=== PATIENT | female | born 1960 | race Caucasian/White ===

== ENCOUNTER 2016-09-26 08:23 | Outpatient (CLI) | payer BC ==
--- NOTE | 2016-09-29 16:23 | Mammography Report ---
DIGITAL SCREENING MAMMOGRAM: 09/26/2016 CLINICAL INDICATION: A 56-year-old, for screening. COMPARISON: 07/2013, 01/2009. TECHNIQUE: Routine CC and MLO projections were obtained of the breasts. FINDINGS: The breasts again demonstrate heterogeneously dense fibroglandular parenchyma bilaterally. In the right outer central breast, there is a possible obscured nodule. Further evaluation with spot compression views and possible ultrasound is recommended. No mammographically suspicious findings ar e appreciated in the left breast. IMPRESSION: INCOMPLETE EXAMINATION. RECOMMENDATION: ADDITIONAL EVALUATION OF THE RIGHT BREAST ABOVE. BIRADS CATEGORY 0-INCOMPLETE. STANDARD QUALIFYING STATEMENTS 1. This examination was reviewed with the aid of Computer-Aided Detection (CAD). 2. A negative or benign imaging report should not delay biopsy if clinically suspicious findings are present. Consider surgical consultation if warranted. More than 5% of cancers are not identified by i maging. 3. Dense breasts may obscure an underlying neoplasm. JOB #: [id number] EXT JOB #:[id number]
== END 2016-09-26 08:24 | disposition home or self-care (01) ==
LOC: DI 08:23
PROVIDERS: ATTEND Physician Assistant
DX: Z12.31 Encounter for screening mammogram for malignant neoplasm of breast (principal); R92.8 Other abnormal and inconclusive findings on diagnostic imaging of breast
CPT/HCPCS: 77067

== ENCOUNTER 2016-09-26 08:27 | Outpatient (CLI) | payer BC ==
--- NOTE | 2016-09-26 13:31 | DEXA Report ---
DEXA BONE MINERAL DENSITY SCAN: 09/26/2016 CLINICAL HISTORY: A 56-year-old postmenopausal female. TECHNIQUE: Dual energy x-ray absorptiometry (DXA) was performed on a [employer] system. Regions measured are the AP spine, femoral neck, and, if needed, forearm. COMPARISON: None. In accordance with the International Society for Clinical Densitometry (ISCD) guidelines, data from previous exams may be reanalyzed using current recommendations and techniques. This is done to allow a more accurate basis for comparison with the current study. FINDINGS: The data for the lumbar spine is as follows: REGION BMD (g/cm/cm) T-SCORE Z-SCORE L1 1.177 0.4 0.9 L2 1.247 0.4 0.9 L3 1.359 1.3 1.9 L4 1.325 1.0 1.6 TOTAL 1.284 0.9 1.4 NOTE: All evaluable vertebrae are used for classification. The data for the hip is as follows: REGION BMD (g/cm/cm) T-SCORE Z-SCORE Neck 0.996 -0.3 0.5 TOTAL 0.989 -0.1 0.3 NOTE: The femoral neck or total proximal femur, whichever is lowest, is used for classification. IMPRESSION: L1 THROUGH L4 T-SCORE IS 0.9. THIS IS WITHIN NORMAL LIMITS ACCORDING TO THE WORLD HEALTH ORGANIZATION GUIDELINES. THE FEMORAL NECK T-SCORE IS -0.3. THIS IS WITHIN NORMAL LIMITS ACCORDING TO THE WORLD HEALTH ORGANIZATION GUIDELINES. TOTAL HIP T-SCORE IS -0.1. THIS IS WITHIN NORMAL LIMITS ACCORDING TO THE WORLD HEALTH ORGANIZATION GUIDELINES. THE WHO CLASSIFICATION BASED ON THE INTERNATIONAL REFERENCE STANDARD IS NORMAL. THE PATIENT HAS NO INCREASED FRACTURE RISK. RECOMMENDATION: Patients with diagnosis of osteoporosis or osteopenia should have regular bone mineral density assessment. For those eligible for Medicare, routine testing is allowed once every 2 years. Testing frequency can be increased for patients who have rapidly progressing disease or for those who are receiving medical therapy to restore bone mass. COMMENT: World Health Organization (WHO) definitions for osteoporosis and osteopenia: NORMAL BMD: T-score at -1.0 or higher, fracture risk is low. OSTEOPENIA BMD: T-score between -1.0 and -2.5, fracture risk is increased. OSTEOPOROSIS BMD: T-score at -2.5 or lower, fracture risk high. National Osteoporosis Foundation recommends: 1. Obtain adequate dietary calcium (at least 1200 mg per day) and vitamin D (400 -800 international units per day). 2. Participate, as appropriate, in regular weightbearing and muscle- strengthening exercise. 3. Avoid tobacco use and reduce alcohol and caffeine intake. 4. For more detailed information see the website at www.NOF.org. MTDD
== END 2016-09-26 08:28 | disposition home or self-care (01) ==
LOC: DI 08:27
PROVIDERS: ATTEND Physician Assistant
DX: Z78.0 Asymptomatic menopausal state (principal)
CPT/HCPCS: 77080

== ENCOUNTER 2016-10-17 08:14 | Outpatient (CLI) | payer BC ==
--- NOTE | 2016-10-17 12:35 | Ultrasound Report ---
RIGHT BREAST ULTRASOUND: 10/17/2016 CLINICAL INDICATION: Persistent nodule on mammogram. TECHNIQUE: Real-time scanning was performed with patient care representative static images obtained. FINDINGS: Ultrasound of the right outer breast was performed. At the 9 o'clock position, approximat gregorio 3 cm from the nipple, there is a 1.6 x 1.3 x 0.9 cm simple cyst, accounting for the mammographic abnormality. No sonographically suspicious findings are identified. IMPRESSION: SIMPLE CYST, ACCOUNTING FOR THE MAMMOGRAPHIC ABNORMALITY. RECOMMENDATION: Routine annual screening unless otherwise clinically indicated. BIRADS CATEGORY 2 - BENIGN FINDINGS. JOB #: [id number] EXT JOB #:[id number]
--- NOTE | 2016-10-17 20:00 | Mammography Report ---
DIGITAL DIAGNOSTIC RIGHT MAMMOGRAM: 10/17/2016 CLINICAL INDICATION: Possible nodule on screening. TECHNIQUE: Right true lateral and spot compression views. COMPARISON: 09/26/2016, 07/29/2013, 02/02/2009 FINDINGS: The right breast again demonstrates heterogeneously dense fibroglandular parenchyma. A ci rcumscribed nodule persists at the 3 o'clock position of the right breast, measuring 1.8 cm. Please also refer to right breast ultrasound of the same day. No associated calcifications are seen. IMPRESSION: BENIGN FINDINGS, WITH A SIMPLE CYST ON ULTRASOUND ACCOUNTING FOR THE MAMMOGRAPHIC ABNORM ALITY. RECOMMENDATION: Routine annual screening unless otherwise clinically indicated. BIRADS CATEGORY 2 - BENIGN FINDINGS. STANDARD QUALIFYING STATEMENTS 1. This examination was reviewed with the aid of Computer-Aided Detection (CAD). 2. A negative or benign imaging report should not delay biopsy if clinically suspicious findings are present. Consider surgical consultation if warranted. More than 5% of cancers are not identified by i maging. 3. Dense breasts may obscure an underlying neoplasm. JOB #: [id number] EXT JOB #:[id number]
== END 2016-10-17 08:15 | disposition home or self-care (01) ==
LOC: DI 08:14
PROVIDERS: ATTEND Physician Assistant
DX: N60.01 Solitary cyst of right breast (principal)
CPT/HCPCS: 76642

== ENCOUNTER 2016-11-04 06:27 | Day surgery (SDC) | payer BC ==
[2016-11-04] MEDS ORDERED: LACTATED RINGERS 1,000 ML IV ONE ×2 (07:00→08:30)
[2016-11-04] MEDS ORDERED: fentaNYL 100 MCG/2 ML VIAL IVP ONE (07:41)
[2016-11-04] MEDS ORDERED: MIDAZOLAM 2 MG/2 ML VIAL IVP ONE (07:41)
[2016-11-04 08:25] VITALS: BP 124/58
== END 2016-11-04 06:28 | disposition home or self-care (01) ==
LOC: SDS 06:27
PROVIDERS: ATTEND Surgery
PROC: 0DBN8ZX Excision of Sigmoid Colon, Via Natural or Artificial Opening Endoscopic, Diagnostic (ICD-10-PCS; 2016-11-04)
PROC: 0DBM8ZX Excision of Descending Colon, Via Natural or Artificial Opening Endoscopic, Diagnostic (ICD-10-PCS; 2016-11-04)
PROC: 0DBK8ZX Excision of Ascending Colon, Via Natural or Artificial Opening Endoscopic, Diagnostic (ICD-10-PCS; principal; 2016-11-04 07:30)
DX: Z12.11 Encounter for screening for malignant neoplasm of colon (principal); D12.4 Benign neoplasm of descending colon; D12.2 Benign neoplasm of ascending colon; D12.5 Benign neoplasm of sigmoid colon; I10 Essential (primary) hypertension; F32.9 Major depressive disorder, single episode, unspecified
CPT/HCPCS: 45384; J7120

== ENCOUNTER 2017-01-20 14:31 | Outpatient (CLI) | payer BC | END 2017-01-20 14:32 | disposition home or self-care (01) | LOC: LAB.F 14:31 | PROVIDERS: ATTEND Orthopaedic Surgery | DX: Z79.01 Long term (current) use of anticoagulants (principal) | CPT/HCPCS: 36415; 85610 ==

== ENCOUNTER 2017-01-23 13:05 | Outpatient (CLI) | payer BC ==
[2017-01-23 17:54] LABS: PT - PROTHROMBIN TIME 45.7 secs (9.9-12.6)
== END 2017-01-23 13:06 | disposition home or self-care (01) ==
LOC: LAB.F 13:05
PROVIDERS: ATTEND Orthopaedic Surgery
DX: Z79.01 Long term (current) use of anticoagulants (principal)
CPT/HCPCS: 85610

== ENCOUNTER 2017-10-02 07:07 | Outpatient (CLI) | payer OTHER ==
[2017-10-03 10:07] LABS: ESTRADIOL 16 pg/mL
[2017-10-03 10:57] LABS: PROGESTERONE <0.5 ng/mL
== END 2017-10-02 07:08 | disposition home or self-care (01) ==
LOC: LAB.F 07:07
PROVIDERS: ATTEND Naturopath
DX: Z79.890 Hormone replacement therapy (principal)
CPT/HCPCS: 36415; 82670; 82672; 84144; 84403

== ENCOUNTER 2018-03-04 04:30 | Day surgery (SDC) | payer OTHER ==
[2018-03-04] MEDS ORDERED: HYDROmorphone 1 MG/ML CARPUJECT IVP STA ×4 (04:54→13:44)
[2018-03-04] MEDS ORDERED: SODIUM CHLORIDE 0.9% 1,000 ML IV ONE ×2 (04:54→11:57)
[2018-03-04] MEDS ORDERED: ONDANSETRON 4 MG/2 ML VIAL IVP STA ×2 (04:54→12:16)
[2018-03-04 04:56] LABS: BASOPHILS % (AUTO) 0.3 %; EOSINOPHILS % (AUTO) 0.1 %; HGB - HEMOGLOBIN 12.9 g/dL (12.0-16.0); LYMPHOCYTES # (AUTO) 0.9 10^3/uL (1.5-3.5); LYMPHOCYTES % (AUTO) 7.2 %; MEAN CORPUSCULAR HGB CONC 33.9 g/dL (32.0-36.0); MEAN CORPUSCULAR VOLUME 94.5 fL (81.0-99.0); MEAN PLATELET VOLUME 8.5 fL (7.9-10.8); MONOCYTES # (AUTO) 0.6 10^3/uL (0.0-1.0); MONOCYTES % (AUTO) 4.7 %; NEUTROPHILS # (AUTO) 10.8 10^3/uL (1.5-6.6); NEUTROPHILS % (AUTO) 87.7 %; PLT - PLATELET COUNT 208 10^3/uL (130-450); RED BLOOD COUNT 4.03 10^6/uL (4.20-5.40); RED CELL DISTRIBUTION WIDTH 12.2 % (12.0-15.0); WHITE BLOOD COUNT 12.3 x10^3/uL (4.8-10.8)
--- NOTE | 2018-03-04 04:58 | ED Physician Documentation ---
PD HPI ABD PAIN - Stated complaint Stated Complaint: ABD PX - Chief complaint Chief Complaint: Abd Pain - History obtained from History obtained from: Patient, Family - History of Present Illness Timing - onset: Enter time (1700), Yesterday Timing - duration: Hours Timing - details: Gradual onset, Still present Quality: Sharp, Pain Location: RLQ Improved by: Laying still, Vomiting Worsened by: Eating, Moving, Breathing, Position, Palpation Associated symptoms: Nausea, Vomiting, Diarrhea, Loss of appetite Similar symptoms before: Has not had sx before Recently seen: Not recently seen - Additional information Additional information: 57-year-old previously well female had a upper respiratory type infection over the past week and then yesterday afternoon she developed periumbilical abdominal pain which is now migrated into the right lower quadrant and is become severe. She has pain with any movement and with palpation. She is moving slowly required help to get out of the car to come into the emergency department. She is had one episode of vomiting she has had some loose stool and she has had fever and chills. Review of Systems Constitutional: reports: Fever, Chills, Myalgias Ears: denies: Ear pain Nose: reports: Rhinorrhea / runny nose, Congestion Throat: denies: Sore throat Cardiac: denies: Chest pain / pressure, Palpitations Respiratory: reports: Cough. denies: Dyspnea GI: reports: Abdominal Pain, Nausea, Vomiting, Diarrhea : denies: Dysuria, Frequency Skin: denies: Rash Musculoskeletal: denies: Neck pain, Back pain, Extremity pain PD PAST MEDICAL HISTORY - Past Medical History Past Medical History: Yes Cardiovascular: Hypertension Respiratory: None Endocrine/Autoimmune: None GI: None HEENT: None Psych: Depression Musculoskeletal: Osteoarthritis Derm: None - Past Surgical History Past Surgical History: Yes Ortho: Hip replacement /CLINICAL SOCIOLOGIST: Tubal ligation HEENT: Tonsil/Adenoidectomy - Present Medications Home Medications: Ambulatory Orders Medication Instructions Recorded Confirmed Citalopram [CeleXA] 10 mg ORAL DAILY 11/04/16 11/04/16 hydroCHLOROthiazide 25 mg ORAL DAILY 11/04/16 11/04/16 [Hydrochlorothiazide] - Allergies Allergies/Adverse Reactions: Allergies Allergy/AdvReac Type Severity Reaction Status Date / Time bacitracin Allergy Rash Verified 03/04/18 04:36 bacitracin zinc * Allergy Rash Verified 03/04/18 04:36 [From Neosporin ([id number])] neomycin sulfate * Allergy Rash Verified 03/04/18 04:36 [From Neosporin ([id number])] nickel Allergy Rash Verified 03/04/18 04:36 polymyxin B Allergy Rash Verified 03/04/18 04:36 [From Neosporin ([id number])] - Social History Does the pt smoke?: No Smoking Status: Never smoker Does the pt drink ETOH?: Yes Does the pt have substance abuse?: No - Immunizations Immunizations are current?: Yes - POLST Patient has POLST: No PD ED PE NORMAL - Vitals Vital signs reviewed: Yes (hypertensive ) - General General: Alert and oriented X 3, Well developed/nourished, Other (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 ) - HEENT HEENT: Atraumatic, PERRL, EOMI - Neck Neck: Supple, no meningeal sign - Cardiac Cardiac: RRR, No murmur - Respiratory Respiratory: No respiratory distress, Clear bilaterally - Abdomen Abdomen: Soft, Other (RLQ tenderness with garding and referred tenderness ) - Back Back: No CVA TTP, No spinal TTP - Derm Derm: Normal color, Warm and dry, No rash - Extremities Extremities: No deformity, No edema - Neuro Neuro: Alert and oriented X 3, gang investigator 2-12 intact, No motor deficit, No sensory deficit, Normal speech Eye Opening: Spontaneous Motor: Obeys Commands Verbal: Oriented GCS Score: 15 - Psych Psych: Normal mood, Normal affect Results - Vitals Vitals: Vital Signs - 24 hr 03/04/18 04:34 Temperature 36.7 C Heart Rate 78 Respiratory 18 Rate Blood Pressure 179/97 H O2 Saturation 100 Oxygen O2 Source Room air - Labs Labs: Laboratory Tests 03/04/18 03/04/18 04:41 04:41 WBC 12.3 H RBC 4.03 L Hgb 12.9 Hct 38.1 MCV 94.5 MCH 32.0 H MCHC 33.9 RDW 12.2 Plt Count 208 MPV 8.5 Neut # (Auto) 10.8 H Lymph # (Auto) 0.9 L [place] # (Auto) 0.6 Eos # (Auto) 0.0 Baso # (Auto) 0.0 Absolute Nucleated RBC 0.00 Nucleated RBC % 0.0 Sodium 136 Potassium 3.0 L Chloride 97 L Carbon Dioxide 31 Anion Gap 8.0 BUN 24 H Creatinine 1.1 H Estimated GFR (MDRD) 51 L Glucose 156 H Calcium 9.5 Total Bilirubin 0.6 AST 24 ALT 19 Alkaline Phosphatase 71 Total Protein 7.8 Albumin 4.5 Globulin 3.3 Albumin/Globulin Ratio 1.4 Lipase 28 - Rads (name of study) CT abd/pel without Radiology: Prelim report reviewed (Impression: 1. Appendicitis measuring up to 11 mm in diameter. 2. No abscess seen. 3. Mild bibasilar atelectasis with trace pleural effusions.), EMP read indepedently, See rad report PD MEDICAL DECISION MAKING - ED course Complexity details: reviewed old records, reviewed results, re-evaluated patient, considered differential, d/w patient, d/w family ED course: 57-year-old female with a 1 day history of abdominal pain migrating to the right lower quadrant appears to have acute appendicitis on examination and on CT scanning of the abdomen and pelvis. She is administered intravenous Dilaudid and Zofran with improvement in her pain. Departure - Departure Disposition: ED Transfer to [facility] Clinical Impression: Appendicitis Qualifiers: Appendicitis type: acute appendicitis Acute appendicitis type: with localized peritonitis Appendicitis gangrene presence: unspecified whether gangrene present Appendicitis perforation presence: without perforation Appendicitis abscess presence: without abscess Qualified Code(s): K35.30 - Acute appendicitis with localized peritonitis, without perforation or gangrene
[2018-03-04 05:12] LABS: ALBUMIN 4.5 g/dL (3.2-5.5); ALBUMIN/GLOBULIN RATIO 1.4 (1.0-2.2); BILIRUBIN,TOTAL 0.6 mg/dL (0.2-1.0); CALCIUM 9.5 mg/dL (8.5-10.3); CREATININE 1.1 mg/dL (0.4-1.0); TOTAL PROTEIN 7.8 g/dL (6.7-8.2)
--- NOTE | 2018-03-04 05:41 | CT Report ---
Reason: RLQ pain Procedure Date: 03/04/2018 Accession Number: [id number] / [id number] Procedure: CT - Abdomen/Pelvis W/O CPT Code: FULL RESULT: EXAM: CT ABDOMEN AND PELVIS EXAM DATE: 03/04/2018 05:26 AM. CLINICAL HISTORY: RLQ pain. COMPARISONS: None. TECHNIQUE: Routine helical CT imaging was performed through the abdomen and pelvis. IV contrast: None. Enteric contrast: No. Reconstructions: Coronal and sagittal. In accordance with CT protocol optimization, one or more of the following dose reduction techniques were utilized for this exam: automated exposure control, adjustment of mA and/or KV based on patient size, or use of iterative reconstructive technique. FINDINGS: Lung Bases: Mild bibasilar atelectasis. Trace pleural effusions. Liver: Normal. No masses. Gallbladder/Bile Ducts: Unremarkable. Spleen: Normal. Pancreas: Normal. Adrenal Glands: Normal. Kidneys: Normal. No masses or hydronephrosis. Peritoneal Cavity/Bowel: No bowel obstruction seen. There may be some colonic diverticula but no diverticulitis is identified. No free air or free fluid. No lymphadenopathy. Dilated mildly inflamed appendix measuring 11 mm. Appendicolith is seen. No periappendiceal abscess. Pelvic Organs: Streak artifact. Visualized pelvic organs are grossly unremarkable. Vasculature: Mild atherosclerosis. No aortic aneurysm. Bones: Left hip prosthesis. Degenerative changes in the spine. Other: None. IMPRESSION: 1. Appendicitis measuring up to 11 mm in diameter. 2. No abscess seen. 3. Mild bibasilar atelectasis with trace pleural effusions. RADIA
[2018-03-04] MEDS ORDERED: PIPERACILLIN/TAZOBACTAM 3.375 GM in SODIUM CHLORIDE 0.9% MINIBAG 100 ML IV STA (05:46)
[2018-03-04] MEDS ORDERED: POTASSIUM CHLOR 10 MEQ/100 ML 10 MEQ/100 ML BAG IV ONE (05:48)
[2018-03-04 08:51] LABS: BILIRUBIN,URINE NEGATIVE (NEGATIVE); CLARITY,URINE CLEAR (CLEAR); GLUCOSE, URINE (UA) NEGATIVE (NEGATIVE); KETONES,URINE (UA) TRACE mg/dL (NEGATIVE); LEUKOCYTE ESTERASE, URINE NEGATIVE (NEGATIVE); NITRITE,URINE NEGATIVE (NEGATIVE); OCCULT BLOOD,URINE TRACE-LYSE (NEGATIVE); PROTEIN,URINE NEGATIVE (NEGATIVE); UROBILINOGEN,URINE 0.2 (NORMAL) E.U./dL (NORMAL)
--- NOTE | 2018-03-04 11:44 | ANESTHESIA ---
Pre-Anesthesia VS, & Labs - Diagnosis Acute appendicitis - Procedure Lap appendectomy Vital Signs: Temp Pulse Resp BP Pulse Ox 37 C 78 18 154/82 H 96 03/04/18 08:14 03/04/18 04:34 03/04/18 08:14 03/04/18 08:14 03/04/18 08:14 Height 5 ft 6 in Weight (kg) 77.111 kg Body Mass Index 27.4 - Is Patient ?: No - Lab Results Current Lab Results: Laboratory Tests 03/04/18 04:41: Sodium 136, Potassium 3.0 L, Chloride 97 L, Carbon Dioxide 31, Anion Gap 8.0, BUN 24 H, Creatinine 1.1 H, Estimated GFR (MDRD) 51 L, Glucose 156 H, Calcium 9.5, Total Bilirubin 0.6, AST 24, ALT 19, Alkaline Phosphatase 71, Total Protein 7.8, Albumin 4.5, Globulin 3.3, Albumin/Globulin Ratio 1.4, Lipase 28 03/04/18 04:41: WBC 12.3 H, RBC 4.03 L, Hgb 12.9, Hct 38.1, MCV 94.5, MCH 32.0 H , MCHC 33.9, RDW 12.2, Plt Count 208, MPV 8.5, Neut # (Auto) 10.8 H, Lymph # (Auto) 0.9 L, [place] # (Auto) 0.6, Eos # (Auto) 0.0, Baso # (Auto) 0.0, Absolute Nucleated RBC 0.00, Nucleated RBC % 0.0 Fish Bones: 03/04/18 04:41 03/04/18 04:41 Home Medications and Allergies Citalopram [CeleXA] 10 mg ORAL DAILY 11/04/16 hydroCHLOROthiazide [Hydrochlorothiazide] 25 mg ORAL DAILY 11/04/16 Allergies/Adverse Reactions: Allergies Allergy/AdvReac Type Severity Reaction Status Date / Time bacitracin Allergy Rash Verified 03/04/18 04:36 bacitracin zinc * Allergy Rash Verified 03/04/18 04:36 [From Neosporin ([id number])] neomycin sulfate * Allergy Rash Verified 03/04/18 04:36 [From Neosporin ([id number]-[id number])] nickel Allergy Rash Verified 03/04/18 04:36 polymyxin B Allergy Rash Verified 03/04/18 04:36 [From Neosporin ([id number])] Anes History & Medical History - Anesthetic History Anesthesia Complications: reports: No previous complications, Slow wake-up Family history of Anesthesia Complications: Denies Family history of Malignant Hyperthermia: Denies - Medical History Cardiovascular: reports: Hypertension Pulmonary: reports: None Gastrointestinal: reports: None Musculoskeletal: reports: Osteoarthritis Endocrine/Autoimmune: reports: None Skin: reports: None Smoking Status: Never smoker - Surgical History Eyes Ears Nose Throat (EENT): Tonsil/Adenoidectomy Gynecologic: Tubal ligation Orthopedic: Hip replacement, Knee replacement Exam General: Alert, Oriented x3, Cooperative Dental: WNL Mouth Openin Fingerbreadth Neck Mobility: Normal Mallampati classification: II Thyromental Distance: 4-6 cm Respiratory: Lungs clear, Normal breath sounds Neurological: Normal speech Mental/Cognitive Status: Alert/Oriented X3, Normal for patient Cognitive Status: Within normal limits Plan Anesthesia Type: General Consent for Procedure(s) Verified and Reviewed: Yes Code Status: Attempt Resuscitation ASA classification: 2-Mild systemic disease Is this case an emergency?: Yes
[2018-03-04] MEDS ORDERED: PIPERACILLIN/TAZOBACTAM 3.375 GM in SODIUM CHLORIDE 0.9% MINIBAG 100 ML IV SCH (12:00)
--- NOTE | 2018-03-04 13:47 | ED Physician Documentation ---
ED Addendum - Addendum Addendum: 03/04/18 13:45 I assumed care of the patient from the overnight ER MD. The patient was to go to surgery for appendicitis. Dr. Keane came to see the patient shortly after 7 AM. However the OR was full through the morning and the patient remained in the ER until mid afternoon when she could go finally to the OR. She was given repeated doses of pain medicine as needed. She got a second dose of piperacillin at a 6-hour interval. She was maintained with IV fluids. She is kept updated on the progress. She did not have any significant worsening of pain and recheck abdomen did not show any general peritoneal signs so no indication of peritonitis. At this point she should be going to the OR soon.
--- NOTE | 2018-03-04 13:57 | CONSULTATION NOTE ---
Referring Provider Name of Referring Provider:: Dr. Nabeel Faria Consult Date: 03/04/18 Chief Complaint - Chief Complaint Chief Complaint: Abdominal pain History of Present Illness - Admitted From Admitted From:: Not admitted - outpatient placement - History Obtained From Records Reviewed: Yes History obtained from: Patient and Exam Limitations: None - History of Present Illness HPI Comment/Other: Dr. Nabeel Faria called and asked to evaluate this very pleasant 57-year-old female for the possibility of acute appendicitis. The patient states that the pain started yesterday at 2 in the afternoon. This was after eating and initially she thought she had food poisoning. The pain got better and at approximately 8:00 in the evening she decided to eat again which she states was a "big mistake." The pain then just got worse with the passage of time and at 3:30 in the morning today she told her that she would need to come into the emergency department. The pain was initially throughout the abdomen and even now she does have hurt but it is more localized in the right lower quadrant. There was some nausea but no vomiting. No constipation. No diarrhea. No melena. No hematochezia. No hematemesis. No weight loss. She has never had these symptoms previously. History - Past Medical History Cardiovascular: reports: Hypertension Respiratory: reports: None Endocrine/Autoimmune: reports: None GI: reports: None HEENT: reports: None Psych: reports: Depression Musculoskeletal: reports: Osteoarthritis Derm: reports: None MRSA Hx?: No - Past Surgical History Ortho: reports: Hip replacement, Knee replacement /FORENSIC PATHOLOGIST: reports: Tubal ligation HEENT: reports: Tonsil/Adenoidectomy - POLST Patient has POLST: No Meds/Allgy - Home Medications Home Medications: Ambulatory Orders Medication Instructions Recorded Confirmed Citalopram [CeleXA] 10 mg ORAL DAILY 11/04/16 11/04/16 hydroCHLOROthiazide 25 mg ORAL DAILY 11/04/16 11/04/16 [Hydrochlorothiazide] - Allergies Allergies/Adverse Reactions: Allergies Allergy/AdvReac Type Severity Reaction Status Date / Time bacitracin Allergy Rash Verified 03/04/18 04:36 bacitracin zinc * Allergy Rash Verified 03/04/18 04:36 [From Neosporin ([id number])] neomycin sulfate * Allergy Rash Verified 03/04/18 04:36 [From Neosporin ([id number])] nickel Allergy Rash Verified 03/04/18 04:36 polymyxin B Allergy Rash Verified 03/04/18 04:36 [From Neosporin ([id number])] Review of Systems - Constitutional Constitutional: denies: Fatigue - Eyes Eyes: denies: Pain - Ears, Nose & Throat Ears, Nose & Throat: denies: Ear pain - Cardiovascular Cariovascular: denies: Irregular heart rate - Respiratory Respiratory: denies: Cough - Gastrointestinal Gastrointestinal: reports: Abdominal pain, Nausea. denies: Constipation, Diarrhea, Change in bowel habits, Rectal bleeding, Black stools, Bloody stools, Vomiting, [place] blood emesis - Genitourinary Genitourinary: denies: Dysuria - Integumentary Integumentary: denies: Rash - Neurological Neurological: denies: General weakness, Focal weakness - Psychiatric Psychiatric: denies: Depression, Anxiety - Hematologic/Lymphatic Hematologic/Lymphatic: denies: Bruising Exam - Vital Signs Reviewed Vital Signs: Yes Vital Signs: Vital Signs x48h Temp Pulse Resp BP Pulse Ox 03/04/18 13:01 36.9 C 75 16 144/92 H 96 03/04/18 08:14 37 C 18 154/82 H 96 - Physical Exam General Appearance: positive: No acute distress Eyes Bilateral: positive: No lid inflammation, Conjunctivae nml, No scleral icterus ENT: positive: Dry mucous membranes Neck: positive: Trachea midline Respiratory: positive: Chest non-tender, No respiratory distress, Breath sounds nml Cardiovascular: positive: Regular rate & rhythm, No murmur, No gallop Abdomen: positive: Nml bowel sounds, Tenderness (Maximal at McBurney's point.), Guarding Skin: positive: Color nml Extremities: positive: Non-tender, Nml appearance. negative: Tom's sign/cords Neurologic/Psychiatric: positive: Oriented x3 Comments/Other: Note the patient was examined in Room 2 [facility] ED in the presence of her . Conclusion/Plan - Diagnosis Diagnosis: Acute appendicitis - Plan Plan: Laparoscopic appendectomy, possible open appendectomy. The indications, procedure, alternatives including no surgery, possible risks including infection (deep or superficial), bleeding requiring transfusion (with all of its risks), and were fully explained to the patient and all questions answered. I also explained the pathophysiology. I explained that following the surgery I did not want her lifting anything over 15 pounds for 6 weeks to allow for optimal healing and to decrease the likelihood that a hernia would occur. All questions were fully answered. Verbal and written consent was obtained. The patient, in preparation for surgery will be nothing by mouth, and receive 3.375 g of Zosyn with induction. I asked her to contact me with any surgical questions and her concerns and she stated that she would. I asked her to let me know if there is any way we can make her stay at [facility] more comfortable and she stated that she would let me know. My partner Dr. Edis Batres has been kind enough to volunteer to do this case that would allow me to stay in clinic. This was discussed with the patient and the patient is in agreement with allowing Dr. Batres to operate. The plan is to do this operation as an outpatient procedure and to discharge her home following the procedure. 45 minutes of [id number] time spent with the patient, the majority of which was spent in discussion, coordination of care, and completion of the requisite paperwork - Lab Results Lab results reviewed: Yes Fish Bones: 03/04/18 04:41 03/04/18 04:41 - Diagnostic Imaging Results Diagnostic Imaging Results: positive: Final report reviewed, Read independently Diagnostic Imaging Results Comments: Consistent with acute appendicitis
[2018-03-04] MEDS ORDERED: PROPOFOL 200 MG/20 ML VIAL IVP ONE (14:00)
[2018-03-04] MEDS ORDERED: LIDOCAINE-MPF 2% 5 ML VIAL IM ONE (14:00)
[2018-03-04] MEDS ORDERED: KETOROLAC 30 MG/ML VIAL IVP ONE (14:00)
[2018-03-04] MEDS ORDERED: GLYCOPYRROLATE 1 MG/5 ML VIAL IVP ONE (14:00)
[2018-03-04] MEDS ORDERED: ePHEDrine 50 MG/ML VIAL IVP ONE (14:00)
[2018-03-04] MEDS ORDERED: SODIUM CHLORIDE 0.9% 10 ML VIAL IV ONE (14:00)
[2018-03-04] MEDS ORDERED: NEOSTIGMINE 1 MG/1 ML 10 ML MDV IVP ONE (14:00)
[2018-03-04] MEDS ORDERED: DEXAMETHASONE 4 MG/ML VIAL IVP ONE (14:00)
[2018-03-04] MEDS ORDERED: MIDAZOLAM 2 MG/2 ML VIAL IVP ONE (14:00)
[2018-03-04] MEDS ORDERED: ONDANSETRON 4 MG/2 ML VIAL IVP ONE (14:00)
[2018-03-04] MEDS ORDERED: fentaNYL 100 MCG/2 ML VIAL IVP ONE (14:00)
[2018-03-04] MEDS ORDERED: BUPIVACAINE 0.25%-EPI 1:200000 PF 30 ML VIAL ONE (14:36)
[2018-03-04] MEDS ORDERED: BUPIVACAINE 0.25%-EPI 1:200000 PF 10 ML VIAL SUBQ ONE ×2 (15:20)
[2018-03-04] MEDS ORDERED: LACTATED RINGERS 1,000 ML IV ONE ×2 (15:40→15:54)
--- NOTE | 2018-03-04 15:59 | OPERATIVE REPORT ---
Operative Report - General Procedure Date: 03/04/18 Planned Procedure: Laparoscopic Appendectomy Pre-Op Diagnosis: Acute appendicitis Procedure Performed: Laparoscopic appendectomy Post Op Diagnosis: Acute appendicitis - Procedure Note Primary Surgeon: Edis Batres MD [facility] Anesthesia Provider: Román Raphael CRNA Anesthesia Technique: General ET tube Pathology: appendix Estimated Blood Loss (mL): 10 Complications: None - Other Other Information/Narrative: After informed consent patient was placed under general endotracheal anesthesia. Her abdomen was prepped and draped in the usual sterile fashion using Choroprep. Preop preparation included sequential calf compression boots and administration of 3.375 gm of Zosyn intravenously therapeutically. A transverse infraumbilical incision was made and carried down through the layers of the abdominal wall until the peritoneum was identified and entered sharply. A 10 mm Hasan cannula was inserted and pneumoperitoneum was achieved with carbon dioxide. A 10 mm 30 degree Merrill telescope was inserted and laparoscopy carried out with findings of an acute inflamed suppurative appendicitis without gross rupture. Approximately 5 cc of seropurulent peritoneal fluid was present adjacent to the appendix and was aspirated and sent for gram stain and C&S, aerobic and anaerobic. The remainder of the large and small bowel, liver, gallbladder, stomach, uterus, right tube and ovary appeared normal. 2 additional 5 mm ports were placed, in the suprabubic midline and in the left lower quadrant. The appendix was grasped and the mesoappendix ligated and divided with the Ligasure device. The appendix was ligated and divided with the 45 mm linear cutting stapler with a vascular load. This provided adequate hemostasis. The appendix was placed in an organ retrieval bag, extracted, and sent to pathology. The right lower quadrant was copiously irrigated with sterile saline, following which instruments and trocars were removed under direct vision, pneumoperitoneum was allowed to escape, and the incisions were closed using 0-Vicryl for the midline fascia at the umbilicus, and 4-0 Monocryl for subcuticular skin closures at all the port sites, followed by Dermabond. 20 ml of 0.5% bupivocaine with epi was infiltrated into the incisions to assist with postop analgesia. Anesthesia was terminated and the patient transferred to the PACU in satisfactory condition . Sponge, needle, and instrument counts were correct and there were no apparent complications. No drains were used.
[2018-03-04] MEDS ORDERED: IBUPROFEN 600 MG TABLET PO PRN (16:13)
[2018-03-04] MEDS ORDERED: ONDANSETRON 4 MG/2 ML VIAL IVP PRN (16:13)
[2018-03-04] MEDS ORDERED: HYDROcod/ACETAM 5/325 MG TABLET PO PRN (16:13)
[2018-03-04 17:27] VITALS: BP 130/66
[2018-03-04] MEDS: ONDANSETRON ODT 4 MG TABLET ONE ×2 (17:55→18:07)
== END 2018-03-04 09:01 | disposition home or self-care (01) ==
LOC: ED 04:30 → SDS 09:00
PROVIDERS: ATTEND Surgery
PROC: 0DTJ4ZZ Resection of Appendix, Percutaneous Endoscopic Approach (ICD-10-PCS; principal; 2018-03-04 13:45)
DX: K35.80 Unspecified acute appendicitis (principal); I10 Essential (primary) hypertension; F32.9 Major depressive disorder, single episode, unspecified
CPT/HCPCS: 36415; 44970; 74176; 80053; 81003; 83690; 85025; 96365; 96366; 96367; 96375; 96376; 99283; 99284; J1170; J7120; Q0162; 81001; 87070; 87086; 87205

== ENCOUNTER 2018-10-28 16:23 | Outpatient (CLI) | payer OTHER ==
--- NOTE | 2018-10-29 06:47 | XRAY Report ---
Reason: INJURY TO L ANKLE Procedure Date: 10/28/2018 Accession Number: [id number] / [id number] Procedure: XR - Ankle 3 View LT CPT Code: FULL RESULT: EXAM: LEFT ANKLE RADIOGRAPHY EXAM DATE: 10/28/2018 04:48 PM. CLINICAL HISTORY: Injury to left ankle. COMPARISON: None. TECHNIQUE: 3 views. FINDINGS: Bones: Normal. No fractures or bone lesions. Joints: No malalignment. Mild to moderate degenerative changes about the ankle, particularly medially. Soft Tissues: Normal. No soft tissue swelling. IMPRESSION: 1. No left ankle fracture or malalignment seen. 2. Mild to moderate degenerative changes. [facility]
== END 2018-10-28 16:24 | disposition home or self-care (01) ==
LOC: DI 16:23
PROVIDERS: ATTEND Podiatrist
DX: S99.912A Unspecified injury of left ankle, initial encounter (principal); M19.072 Primary osteoarthritis, left ankle and foot